=== PATIENT | female | born 1970 | race Caucasian/White ===

== ENCOUNTER 2021-04-26 18:05 | Emergency (ER) | payer OTHER ==
[~2021-04-26 18:05] MED LIST: LIPITOR20 MG PO; NEURONTIN300 MG PO; PRILOSEC20 MG PO; SPIRIVA 18MCG18 MCG PO; WELLBUTRIN XL150 MG PO
[2021-04-26 18:29] LABS: BASOPHIL 0.6 % (0-2); EOSINOPHIL 1.9 % (0-5); HCT 46.8 % (37.0-47.0); HGB 15.6 g/dl (12.5-16.0); LYMPHOCYTE 21.3 % (15-48); MCH 32.3 pg (25.0-31.0); MCHC 33.3 g/dL (32.0-36.0); MCV 96.9 fL (78.0-100.0); MONOCYTE 6.6 % (0-12); NEUTROPHIL 68.7 % (41-80); NRBC 0; PLT 339 K/uL (150-400); RBC 4.83 M/uL (4.20-5.40); RDW 12.9 % (11.5-14.0); WBC 17.4 K/uL (4.0-10.5)
[2021-04-26 18:53] LABS: ALBUMIN 3.4 g/dL (3.4-5.0); BILIRUBIN - TOTAL 0.6 mg/dL (0.2-1.0); BUN/CREAT RATIO (CALC) 7.6 RATIO; CREATININE 0.92 mg/dL (0.51-0.95); GLOBULIN (CALCULATION) 3.3 g/dL; TOTAL PROTEIN 6.7 g/dL (6.4-8.2)
[2021-04-26 20:38] LABS: BILIRUBIN NEGATIVE (NEGATIVE); BLOOD TRACE-INTACT Ery/uL (NEGATIVE); CLARITY CLEAR (CLEAR); COLOR YELLOW (YELLOW); GLUCOSE (U) NORMAL (NORMAL); LEUKOCYTES TRACE Leu/uL (NEGATIVE); NITRITE NEGATIVE (NEGATIVE); PROTEIN NEGATIVE (NEGATIVE); UROBILINOGEN 0.2 mg/dL (0.2-1.0)
[2021-04-26 20:41] LABS: BACTERIA 2+; URINARY RBC RARE; URINARY WBC RARE; YEAST PRESENT
[2021-04-26] MEDS ORDERED: MOBIC7.5 MG PO (21:01)
[2021-04-26] MEDS ORDERED: PROTONIX40 MG PO (21:01)
== END 2021-04-26 22:17 | disposition home or self-care (01) ==
LOC: FER 18:05
PROVIDERS: Physician Assistant Medical
DX: K21.9 Gastro-esophageal reflux disease without esophagitis (principal); R07.89 Other chest pain; J44.9 Chronic obstructive pulmonary disease, unspecified; E78.5 Hyperlipidemia, unspecified; F17.210 Nicotine dependence, cigarettes, uncomplicated; Z79.899 Other long term (current) drug therapy
CPT/HCPCS: 36415; 71045; 80053; 81001; 82553; 84484; 85025; 93005; C9113; J1885